=== PATIENT | male | born 1945 | race Caucasian/White ===

== ENCOUNTER 2016-10-06 13:08 | Emergency (ER) | payer MEDICARE, OTHER ==
[~2016-10-06] VITALS: Wt 77.0 kg
[2016-10-06] MEDS ORDERED: SOD CHLORIDE 0.9% 1,000 ML IV STA (13:16)
[2016-10-06 13:25] LABS: ADD SCAN DIFF NO
[2016-10-06 13:30] LABS: BASOPHIL # 0.1 10^3/ul (0.0-0.1); BASOPHILS % 0.5 % (0.0-2.0); EOSINOPHILS # 0.2 10^3/ul (0.0-0.5); EOSINOPHILS % 2.2 % (0.0-7.0); HEMATOCRIT 42.9 % (42.0-52.0); LYMPHOCYTES # 1.6 10^3/ul (0.8-2.9); LYMPHOCYTES % 17.5 % (15.0-51.0); MEAN CORPUSCULAR HEMOGLOBIN 29.1 pg (29.0-33.0); MEAN CORPUSCULAR HGB CONC 32.6 g/dl (32.0-37.0); MEAN CORPUSCULAR VOLUME 89.2 fl (82.0-101.0); MEAN PLATELET VOLUME 12.2 fl (7.4-10.4); MONOCYTE # 0.5 10^3/ul (0.3-0.9); MONOCYTES % 4.9 % (0.0-11.0); NEUTROPHILS % 74.7 % (39.0-77.0); PLATELET COUNT 199 10^3/UL (140-415); RED BLOOD COUNT 4.81 10^6/ul (4.70-6.10); RED CELL DISTRIBUTION WIDTH 12.5 % (11.5-14.5); WHITE BLOOD COUNT 9.4 10^3/ul (4.8-10.8)
--- NOTE | 2016-10-06 13:33 | RADRPT ---
PROCEDURE: Noncontrast CT Head. CLINICAL INDICATION: Code stroke. Acute neurologic deficit. TECHNIQUE: Noncontrast CT of the head was obtained. The administered radiation dose was CTDI vol = 44.46 mGy, DLP = 630.2 mGy-cm. One or more of the following dose reduction techniques were used: Aut omated exposure control, Adjustment of the mA and/or kV according to patient size, or Use of iterati ve reconstruction technique. COMPARISON: There are no similar studies submitted for comparison. FINDINGS: There is moderate generalized cerebral volume loss. There is mild cerebellar volume loss. There is minimal periventricular hypoattenuation suggesting chronic microvascular ischemic changes. There are mild vascular calcifications within the intracranial carotid arteries. There is no loss of adair-white differentiation to suggest acute territorial infarction. There is no acute intracranial hemorrhage or extra-axial fluid collection. There is no mass effect. No midline shift is identified. The orbits are within normal limits. The paranasal sinuses are well aerated. No destructive osseous lesion is identified. IMPRESSION: 1. No loss of adair-white differentiation to suggest acute territorial infarction. Consider CTA of t he head/neck or noncontrast MRI of the brain as clinically warranted. 2. No acute intracranial hemorrhage or extra-axial fluid collection. 3. Moderate cerebral volume loss with mild cerebellar volume loss. 3. Minimal chronic microvascular ischemic changes. Further findings as detailed above. These findings were discussed with Dr. Ovidio Matta at 01:32 p.m. on October 06, 2016. RPTAT: PP .Freddy Mckenzie MD, MD Date Time Electronically viewed and signed by .Freddy Mckenzie MD, on 10/06/2016 13:32 .F/
[2016-10-06 13:39] LABS: CHLORIDE 100 mmol/L (97-110); INR 1.03; PROTIME 13.5 Sec (12.2-14.2); PT RATIO 1.1; SODIUM 138 mmol/L (135-144)
[2016-10-06 13:41] LABS: CREATININE 1.19 mg/dl (0.61-1.24)
[2016-10-06 13:42] LABS: ANION GAP 17 (8-16); BLOOD UREA NITROGEN 25 mg/dl (7-20); CALCIUM 8.9 mg/dl (8.4-10.2); CARBON DIOXIDE 26 mmol/L (21-31); GLUCOSE 209 mg/dl (70-220)
[2016-10-06] MEDS ORDERED: BENA10TA48 PO (13:49)
[2016-10-06] MEDS ORDERED: LANT3I SC (13:49)
--- NOTE | 2016-10-06 13:55 | RADRPT ---
PROCEDURE: XR Chest. CLINICAL INDICATION: See possible stroke. TECHNIQUE: PA and Lateral views of the chest were obtained. COMPARISON: None. FINDINGS: The soft tissues are normal. The bony elements are normal. The heart is enlarged. cardiomediastin al silhouette and hilar structures are normal. The pulmonary vasculature is normal. There is a left- sided aorta. There are patchy infiltrates in the medial aspect of the left lower lobe. There is mil d bronchograms may project to the medial aspect of the right diaphragm. The costophrenic angles are normal. IMPRESSION: 1. Left lower lobe infiltrate. Equivocal infiltrate or atelectasis in the medial aspect of the righ t lower lobe. 2. Cardiomegaly. RPTAT:AAJJ Physician Ron Date Time Electronically viewed and signed by Physician Ron on 10/06/2016 13:55 /
[2016-10-06 13:57] LABS: TROPONIN-I < 0.012 ng/ml (0.00-0.12)
[2016-10-06] MEDS ORDERED: ASPIRIN 81 MG TAB PO ONE (14:00)
[2016-10-06] MEDS ORDERED: ACETAMINOPHEN 325 MG TAB PO PRN (15:30)
[2016-10-06] MEDS ORDERED: ONDANSETRON 4 MG INJ IV PRN ×2 (15:30→19:00)
[2016-10-06] MEDS ORDERED: NACL 0.9% 3 ML SYG IV SCH (19:00)
[2016-10-06] MEDS ORDERED: LABETALOL HCL 20MG INJ IV ONE (19:00)
[2016-10-06] MEDS ORDERED: BENAZEPRIL 10 MG TAB PO ONE (19:00)
[2016-10-06] MEDS ORDERED: morphine 2 MG INJ IV PRN (19:00)
[2016-10-06] MEDS ORDERED: hydrALAzine 20 MG INJ IV PRN (19:30)
--- NOTE | 2016-10-06 19:37 | HP ---
DATE OF ADMISSION: 10/06/2016 CHIEF COMPLAINT: Weakness and aphasia. HISTORY OF PRESENT ILLNESS: The patient is a 71-year-old male with a history of diabetes and hypert ension but noncompliant with his hypertension medications. The patient reportedly has been having w eakness on the right side of his body for the past month with repeated falls. He does not lose cons ciousness when he falls. He does not feel dizzy; he just simply feels weak. The patient started to have difficulties with speech earlier today, and it has been intermittent throughout the day. The patient has no history of strokes in the past but does have 2 heart attacks but denies any history o f stent placement or open heart surgery and denies any heart failure. The patient currently is able to speak, but history is mostly obtained by the patient's daughter who is bedside. The patient has no other complaints at this time. PAST MEDICAL HISTORY: Hypertension, insulin-requiring diabetes, [place] x2. PAST SURGICAL HISTORY: Knee surgery. HOME MEDICATIONS: 1. Benazepril 10 mg daily, which he reportedly does not take all the time. 2. Lantus 30 units subQ at bedtime. ALLERGIES: NO KNOWN DRUG ALLERGIES. FAMILY HISTORY: Denies. SOCIAL HISTORY: The patient used to smoke in the past but has not smoked for many years now. Denie s any alcohol abuse or drug abuse. REVIEW OF SYSTEMS: A 12-point review of systems negative except as stated in HPI. PHYSICAL EXAMINATION: VITAL SIGNS: Temperature is 97.3, pulse 58, respiratory rate is 18, BP 168/63, saturation 98% on ro om air. GENERAL: No acute distress. Alert. HEENT: Normocephalic, atraumatic. CHEST: Clear to auscultation. CARDIOVASCULAR: Regular rate, rhythm. ABDOMEN: Nondistended, nontender, soft. EXTREMITIES: No clubbing, cyanosis or edema. LABORATORY: White count 7.4, hemoglobin 14.0, platelets of 199. Chemistry within normal limits exc ept for anion gap of 17, BUN of 25. A1c 6.8. Troponin is negative. DIAGNOSTICS: Chest x-ray shows left lower lobe infiltrate. There is equivocal infiltrate or atelec tasis in the medial aspect of the right lower lobe. There is cardiomegaly. Brain CT shows no acute infarction, no acute hemorrhage, moderate cerebral volume loss with mild cer ebellar volume loss. EKG showed a Mobitz type 2 heart block. ASSESSMENT AND PLAN: 1. Transient ischemic attack. The patient's symptoms are concerning for multiple transient ischemi c attacks. The patient keeps having intermittent loss of language. The patient has been having wea kness on the right side for the past month, but there is no stroke noted on CT. Will get neurology consultation. Will get MRI. Will treat with aspirin and Lipitor. Will get PT and speech therapy e valuations. 2. Insulin-dependent diabetes. Continue home insulin. Diabetes is well controlled with an A1c of 6.8. Will put the patient on sliding scale as well. 3. Hypertension. Blood pressure is elevated at this time. The patient is within the window for pe rmissive hypertension as the symptoms of aphasia began today. Will hold his blood pressure medicati on at this time. Will treat BP over 200 and began to control his blood pressure over the next 24 to 48 hours. 4. Prophylaxis: Lovenox. Dictated By: CAITLIN GARCIAS MD BS/NTS Conf#: [id number] DID#: [id number]
--- NOTE | 2016-10-06 20:22 | ERA ---
ER Documentation Chief Complaint Date/Time DATE: 10/06/16 TIME: 20:11 Chief Complaint R SIDE ARM WEAKNESS AND RIGHT LEG WEAKNESS. 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 RESOLVED NOW HPI 71-year-old male presented for right arm and leg weakness to have begun an hour and a half prior to account development associate arrival according to the paramedics. This caused him to fall but he had no head injury and does not have any pain currently. 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 He denies chest pain, shortness of breath. He does seem somewhat confused during neurological testing. History may be unreliable. ROS All systems reviewed and are negative except as per history of present illness by history may be unreliable as patient is somewhat confused Medications Home Meds Reported Medications Insulin Glargine* (Lantus*) 100 Unit/Ml Soln, 30 UNIT SC QHS, #1 VIAL 10/06/16 Benazepril Hcl* (Benazepril Hcl*) 10 Mg Tablet, 10 MG PO DAILY, #30 TAB 10/06/16 Allergies Allergies: Coded Allergies: No Known Allergy (Unverified , 10/06/16) PMhx/Soc History of Surgery: Yes (LEFT LEG SX.RIGHT KNEE SX) Anesthesia Reaction: No Hx Neurological Disorder: No Hx Respiratory Disorders: No Hx Cardiac Disorders: Yes (HTN,HEART ATTACK) Hx Psychiatric Problems: No Hx Miscellaneous Medical Probl: Yes (DM) Hx Alcohol Use: No Hx Substance Use: No Hx Tobacco Use: No Smoking Status: Former smoker Physical Exam Vitals Vital Signs Date Time Temp Pulse Resp B/P Pulse Ox O2 Delivery O2 Flow Rate FiO2 10/06/16 18:30 97.3 73 18 204/89 97 Room Air 10/06/16 17:18 97.3 58 18 168/63 98 Room Air 10/06/16 15:07 77 18 177/82 98 Room Air 10/06/16 14:28 Nasal Cannula 2 10/06/16 13:13 98.1 59 18 156/74 98 Physical Exam Const: [] Mild distress, appears in comfort Head: Atraumatic Eyes: Normal Conjunctiva ENT: Normal External Ears, Nose and Mouth. Neck: Full range of motion..~ No meningismus. Resp: Clear to auscultation bilaterally Cardio: Regular rate and rhythm, no murmurs Abd: Soft, non tender, non distended. Normal bowel sounds Skin: No petechiae or rashes Back: No midline or flank tenderness Ext: No cyanosis, or edema Neur: Awake and alert Psych: Normal Mood and Affect Result Diagram: 10/06/16 1315 10/06/16 1315 Results 24 hrs Laboratory Tests Test 10/06/16 13:15 White Blood Count 9.410^3/ul Red Blood Count 4.8110^6/ul Hemoglobin 14.0g/dl Hematocrit 42.9% Mean Corpuscular Volume 89.2fl Mean Corpuscular Hemoglobin 29.1pg Mean Corpuscular Hemoglobin Concent 32.6g/dl Red Cell Distribution Width 12.5% Platelet Count 78005^3/UL Mean Platelet Volume 12.2fl Neutrophils % 74.7% Lymphocytes % 17.5% Monocytes % 4.9% Eosinophils % 2.2% Basophils % 0.5% Nucleated Red Blood Cells % 0.0/100WBC Neutrophils # 7.010^3/ul Lymphocytes # 1.610^3/ul Monocytes # 0.510^3/ul Eosinophils # 0.210^3/ul Basophils # 0.110^3/ul Nucleated Red Blood Cells # 0.010^3/ul Prothrombin Time 13.5Sec Prothrombin Time Ratio 1.1 INR International Normalized Ratio 1.03 Activated Partial Thromboplast Time 29.0Sec Sodium Level 138mmol/L Potassium Level 5.0mmol/L Chloride Level 100mmol/L Carbon Dioxide Level 26mmol/L Anion Gap 17 Blood Urea Nitrogen 25mg/dl Creatinine 1.19mg/dl Glucose Level 209mg/dl Hemoglobin A1c 6.8% Calcium Level 8.9mg/dl Troponin I < 0.012ng/ml Current Medications Medications (Trade) Dose Ordered Sig/Rodolfo Route PRN Reason Start Time Stop Time Status Last Admin Dose Admin Sodium Chloride (NS) 1,000 ml @ 1,000 mls/hr Q1H STAT IV 10/06/16 13:16 10/06/16 14:15 DC 10/06/16 14:11 Aspirin (Aspirin) 324 mg ONCE ONCE PO 10/06/16 14:00 10/06/16 14:01 DC 10/06/16 14:14 Ondansetron HCl (Zofran Inj) 4 mg ER BRIDGE PRN IV NAUSEA AND/OR VOMITING 10/06/16 15:30 10/07/16 15:29 Acetaminophen (Tylenol Tab) 650 mg ER BRIDGE PRN PO MILD PAIN/FEVER 10/06/16 15:30 10/07/16 15:29 Labetalol HCl (Labetalol) 10 mg ONCE ONCE IV 10/06/16 19:00 10/06/16 19:01 DC 10/06/16 18:57 Benazepril HCl 10 mg 10 mg ONCE ONCE PO 10/06/16 19:00 10/06/16 19:01 DC 10/06/16 19:44 Sodium Chloride (1/2 NS) 1,000 ml @ 100 mls/hr Q10H IV 10/06/16 18:52 UNV IV Flush (NS 3 ml) 3 ml PER PROTOCOL IV 10/06/16 19:00 UNV Ondansetron HCl (Zofran Inj) 4 mg Q6H PRN IV NAUSEA AND/OR VOMITING 10/06/16 19:00 UNV Morphine Sulfate (morphine) 2 mg Q4H PRN IV SEVERE PAIN LEVEL 7-10 10/06/16 19:00 UNV Enoxaparin Sodium (Lovenox) 40 mg DAILY SC 10/07/16 09:00 UNV Insulin Aspart (Novolog Insulin Pen) NOVOLOG *MILD* ALGORI... Q4 SC 10/06/16 21:00 UNV Miscellaneous Information (* Miscellaneous Pharmacy Order) HYPOGLYCEMIA PROTOCOL w... ONCE ONCE XX 10/06/16 19:00 10/06/16 19:01 UNV Miscellaneous Information (* Miscellaneous Pharmacy Order) Discontinue Glyburide, Glipizide,... ONCE ONCE XX 10/06/16 19:00 10/06/16 19:01 UNV Miscellaneous Information (* Miscellaneous Pharmacy Order) Discontinue all previ... ONCE ONCE XX 10/06/16 19:00 10/06/16 19:01 UNV Insulin Glargine (Lantus) 10 unit DAILY@20 SC 10/06/16 20:00 UNV Atorvastatin Calcium (Lipitor) 80 mg HS PO 10/06/16 21:00 UNV Aspirin (Ecotrin) 325 mg DAILY PO 10/07/16 09:00 UNV Hydralazine HCl (Apresoline) 10 mg Q4 PRN IV SBP>190 10/06/16 19:30 UNV Procedures/MDM 71-year-old male with history concerning for transient ischemic attack. Patient was noted to have confusion in 2 instances in the emergency room. He arrived he had trouble following instructions for a neurological exam. And after he had been here for a few hours his daughter noticed that he was acutely confused which she had not been before. Had resolving weakness consistent with a TIA. Patient was evaluated by tele-neurology she states the patient's family said that he is having symptoms on and off for a month does not seem to have any weakness at this time does not recommend TPA further conversation with family also reports of him having hypotension at some times in the past. He does have bradycardia with ventricular coupling and EKGs and cardiac arrhythmia may be responsible for his falls CT was negative for hemorrhage and the patient was given aspirin. Spoke with negative she will be admitting the patient and request that I call Dr Springer. Dr. Gomez was covering or Dr. Springer and was paged but has not called back to the emergency room at. Patient's blood pressure actually became very high he was given 10 mg of labetalol to acutely lower. Did order an MRI from the ER. Patient will be admitted for further workup of transient ischemic attack as well as possible cardiac abnormalities. I also ordered an echocardiogram. EKG interpretation #1 call apparent sinus bradycardia with ventricular coupling seems more likely than Mobitz type II heart block considering the patient's monitor on the rhythm often transitions to sinus bradycardia, left axis deviation, no ST or T-wave changes concerning for acute ischemia. EKG interpretation #2: Sinus bradycardia with ventricular coupling, rate of 74, left axis deviation, no ST or T-wave changes concerning for acute ischemia on intrinsic beats. Critical care time 30 minutes: This includes treatment of increasing high blood pressure with fluctuating neurological symptoms in patient with possible stroke , use of vasoactive medication labetalol IV to lower blood pressure, multiple visits the patient's bedside to reassess his neuro and cardiodynamics status, chart review, discussion with family, discussion with the admitting doctor. This is not including any billable procedures. Departure Diagnosis: Primary Impression: Transient ischemic attack Additional Impressions: Accelerated hypertension Altered level of consciousness Acute electrocardiogram changes Condition: Serious NIA RUIZ DO Oct 06, 2016 20:21
[2016-10-06] MEDS ORDERED: DEXTROSE 50% 50 ML SYRINGE IV PRN ×2 (20:30)
[2016-10-06] MEDS ORDERED: GLUCOSE GEL 15 GRAM TUBE BUCCAL PRN (20:30)
[2016-10-06] MEDS ORDERED: GLUCOSE GEL 15 GRAM TUBE PO PRN ×2 (20:30)
[2016-10-06] MEDS ORDERED: GLUCAGON 1 MG INJ IM PRN (20:30)
--- NOTE | 2016-10-06 20:48 | STROKE ---
Date/Time of Note Date/Time of Note DATE: 10/06/16 TIME: 18:22 Patient Information General Patient location: emergency Arrival Date Age 71 Gender male Weight 77 kg Vital Signs Vital Signs Vital Signs Date Time Temp Pulse Resp B/P Pulse Ox O2 Delivery O2 Flow Rate FiO2 10/06/16 17:18 97.3 58 18 168/63 98 Room Air 10/06/16 14:28 2 Patient History Current Medications Allergies: Coded Allergies: No Known Allergy (Unverified , 10/06/16) Labs Hematology Labs Hematology Test 10/06/16 13:15 White Blood Count 9.410^3/ul (4.8-10.8) Red Blood Count 4.8110^6/ul (4.70-6.10) Hemoglobin 14.0g/dl (14.0-18.0) Hematocrit 42.9% (42.0-52.0) Mean Corpuscular Volume 89.2fl (82.0-101.0) Mean Corpuscular Hemoglobin 29.1pg (29.0-33.0) Mean Corpuscular Hemoglobin Concent 32.6g/dl (32.0-37.0) Red Cell Distribution Width 12.5% (11.5-14.5) Platelet Count 49507^3/UL (140-415) Mean Platelet Volume 12.2fl (7.4-10.4) Neutrophils % 74.7% (39.0-77.0) Lymphocytes % 17.5% (15.0-51.0) Monocytes % 4.9% (0.0-11.0) Eosinophils % 2.2% (0.0-7.0) Basophils % 0.5% (0.0-2.0) Nucleated Red Blood Cells % 0.0/100WBC (0.0-0.0) Neutrophils # 7.010^3/ul (1.6-7.5) Lymphocytes # 1.610^3/ul (0.8-2.9) Monocytes # 0.510^3/ul (0.3-0.9) Eosinophils # 0.210^3/ul (0.0-0.5) Basophils # 0.110^3/ul (0.0-0.1) Nucleated Red Blood Cells # 0.010^3/ul (0.0-0.0) Chemistry Labs Chemistry Test 10/06/16 13:15 Sodium Level 138mmol/L (135-144) Potassium Level 5.0mmol/L (3.5-5.1) Chloride Level 100mmol/L (97-110) Carbon Dioxide Level 26mmol/L (21-31) Anion Gap 17 (8-16) Blood Urea Nitrogen 25mg/dl (7-20) Creatinine 1.19mg/dl (0.61-1.24) Glucose Level 209mg/dl (70-220) Hemoglobin A1c 6.8% (0-5.9) Calcium Level 8.9mg/dl (8.4-10.2) Troponin I < 0.012ng/ml (0.00-0.12) Coagulation Labs: Coagulation Test 10/06/16 13:15 Prothrombin Time 13.5Sec (12.2-14.2) Prothrombin Time Ratio 1.1 INR International Normalized Ratio 1.03 Activated Partial Thromboplast Time 29.0Sec (25.0-35.0) History & Physical Patient History Notes Pt Hx Reviewed History of Present Illness 71yo M presents with acute onset confusion and possible right sided numbness and weakness. The report of right sided numbness and weakness was given by EMS. Patient's daughter reports that patient has been intermittently collapsing over the last month. Today, daughter reports that the patient's blood pressure dropped at daycare and then the patient became confused. Review of Systems Constitutional: no symptoms reported EENTM: no symptoms reported Respiratory: no symptoms reported Cardiovascular: no symptoms reported Gastrointestinal: no symptoms reported Genitourinary: no symptoms reported Musculoskeletal: no symptoms reported Skin: no symptoms reported Psychiatric/Neurological: no symptoms reported All Other Systems: Reviewed and Negative NIH Stroke Scale NIH Stroke Scale 1A - Level of Conciousness: 0 - Alert keenly [id number] LOC Questions: 0 - Answers both [id number] - LOC Commands: 0 - Performs both tasks2 - Best Gaze: 0 - Normal3 - Visual: 0 - No visual loss4 - Facial Palsy: 0 - No visual loss 5A - Motor Arm - Left: 0 - No [id number] - Motor Arm - Right: 0 - No [id number] - Motor Leg - Left: 0 - No [id number] - Motor Leg - Right: 0 - No drift7 - Limb Ataxia: 0 - Absent8 - Sensory: 0 - Normal9 - Best Language: 0 - No aphasia or normalDysarthria: 0 - [id number] - Extinction and inattentio: 0 - No abnormality Date/Time Recorded DATE: 10/06/16 TIME: 18:22 Submitted By Jett Newton t-PA Imaging Review Imaging Reviewed: Yes Date/Time Imaging Reviewed DATE: 10/06/16 TIME: 18:22 Imaging Findings No acute changes t-PA Administration Recommendation: No Weight 77 kg Recommedation submitted by Jett Newton Reason t-PA not Recommended symptoms resolving quickly t-PA Not Recommended Date/Time 14:00 Recommendations Impression Diagnosis altered mental status, syncope Recommendation 71yo M presents with acute onset confusion and possible right sided numbness and weakness. Neurological exam is now unremarkable. Differential diagnosis for patient's altered mental status includes ischemic stroke, metabolic encephalopathy, and seizure but, given patient's reported hypotension, I suspect patient's symptoms may be cardiac in etiology. I recommend workup to include MRI Brain without gadolinium, MRA of the head without gadolinium, MRA of the neck with gadolinium, transthoracic echocardiogram, EEG, infectious/ metabolic workup, and manager monitoring. Diagnostic Labs: Lipid Proile Hgb A1C CMP CBC w/Diff Coags Urinaysis Therapy: Physical Therapy Speech Therapy Occupational Therapy Misc. Recommendations: Bedside Swallow Evaluation Pnumatic Compression Devices Stroke Education Smoking Education JETT NEWTON Oct 06, 2016 18:32
[2016-10-06 21:15] LABS: T3 UPTAKE 34.7 % (23.5-40.5)
[2016-10-06] MEDS ORDERED: SOD CHLORIDE 0.45% 1,000 ML IV SCH (22:00)
--- NOTE | 2016-10-06 22:09 | RADRPT ---
PROCEDURE: MRI Brain without contrast. CLINICAL INDICATION: Neurologic deficit. Possible stroke. TECHNIQUE: MRI of the brain was performed with the following sequences obtained: Sagittal, coronal and axial T1-weighted, axial T2-weighted, axial FLAIR, axial diffusion weighted (with ADC map), and coronal GRE. COMPARISON: CT brain 10/06/2016 FINDINGS: Approximately 9 punctate foci of restricted diffusion each measuring less than 5 mm is present withi n the posterior left cerebral hemisphere near the convexity involving the posterior left frontal, le ft parietal and junction between the left occipital and parietal lobes, findings consistent with acu te ischemic lacunar type infarcts in the watershed distribution between the anterior middle cerebral arteries No hemorrhage, mass effect or mass lesion is present. The extraaxial spaces are clear of collections. Prominence of the ventricular system and sulci is consistent with generalized tissue loss, the degree of atrophy appropriate for the patient's provided age of 71 years. Multiple foci o f hyperintense FLAIR and T2 signal within the subcortical and periventricular white matter are nonsp ecific but likely reflect chronic small vessel ischemic sequela. No signal alteration is present within the brainstem or cerebellum. The fourth ventricle is midline and the craniocervical junction lesion is intact. The area of the sella is normal. The bony calvarium and skull base are intact. Mild fluid signal within the mastoid air cells is pre sent. The paranasal sinuses are grossly clear. The for void in the left internal carotid artery at the skull base and cavernous segment is consistent with left internal carotid artery occlusion (ser ies 6 images 8-9). The vertebral artery flow voids are preserved. RPTAT:HJJR IMPRESSION: 1. Lack of normal signal void in the left internal carotid artery at the skull base to the level of the carotid terminus is consistent with left internal carotid artery occlusion. 2. Approximately 9 punctate sub-5 mm watershed distribution acute lacunar ischemic infarcts in the l eft posterior frontal and left parietal lobes without hemorrhage or mass effect. 3. Generalized age-appropriate cerebral tissue loss and moderate chronic small vessel ischemic whit e matter disease without intracranial mass effect. 4. Results are discussed by telephone with emergency room physician Dr. Geiger at 2207 hours Maurice Poncho, Physician Date Time Electronically viewed and signed by Maurice Isaac, Physician on 10/06/2016 22:08 JR/
[2016-10-06] MEDS ORDERED: INSULIN GLARGINE [LANtus] 3 ML PEN SC SCH (23:00)
--- NOTE | 2016-10-06 23:33 | RADRPT ---
Echocardiogram Report Patient Name: CATHRYN BLACKBURN Gender: Male Date: 1945 Study Date: 06-Oct-2016 Dev Ops Engineer: Heidi Cavazos [facility] [[email or web address]] Location: ER13 Ref. Physician: NIA RUIZ Quality: Adequate Procedures: Transthoracic echocardiogram with complete 2D, M-Mode, and doppler examination. Indications: Abnormal EKG. Syncope. 2D/M Mode Doppler Measurement Value Normal Ranges Measurement Value Normal Ranges LVIDd 2D 4.0 3.5 - 5.6 cm AV Peak Hiram 1.6 m/sec LVIDs 2D 2.9 2.1 - 4.1 cm AV Peak PG 10.3 mmHg LVPWd 2D 1.2 0.6 - 1.1 cm LVOT Peak Hiram 0.9 m/sec IVSd 2D 1.1 0.6 - 1.1 cm LVOT Peak PG 3.2 mmHg AoR Diam 2D 3.3 2.0 - 3.7 cm MV E Peak Hiram 0.9 m/sec EDV 2D 68.7 cm3 MV A Peak Hiram 0.8 m/sec ESV 2D 24.2 cm3 MV E/A 1.1 LA Dimen 2D 4.2 2.3 - 4.0 cm MV Decel Time 100 msec MV Decel Teller 9 MV E/A 1.1 TR Peak Hiram 3.4 m/sec TR Peak PG 46.0 mmHg RVSP 49.0 mmHg Findings Left Ventricle: Normal left ventricular cavity size. Mild concentric left ventricular hypertrophy. Mild left ventricular systolic dysfunction. Ejection fraction is visually estimated at 50 %. Tissue Doppler/Mitral Doppler indices are indeterminate in this study due to the presence of arrhythmia. These segments of the LV are hypokinetic apical septum. Right Ventricle: Normal right ventricular size. Normal right ventricular systolic function. Left Atrium: There is mild enlargement of left atrium. Right Atrium: The right atrium is normal in size. Mitral Valve: Mitral valve leaflets appear mildly thickened. Mild mitral annular calcification. Mild to moderate mitral valve regurgitation. The regurgitation jet is eccentrically directed which may underestimate the severity of mitral regurgitation. Aortic Valve: No significant aortic stenosis or insufficiency. Aortic cusps appear mildly calcified. Tricuspid Valve: Normal appearance of the tricuspid valve. Estimated peak PA systolic pressure 49 mmHg. There is mild tricuspid regurgitation. Pulmonic Valve: Normal pulmonic valve appearance. Pericardium: Normal pericardium with no significant pericardial effusion. Aorta: Normal aortic root. IVC: Normal size and normal respiratory collapse consistent with normal right atrial pressure. Conclusions 1.Normal left ventricular cavity size. Mild concentric left ventricular hypertrophy. Mild left ventricular systolic dysfunction. Ejection fraction is visually estimated at 50 %. Tissue Doppler/Mitral Doppler indices are indeterminate in this study due to the presence of arrhythmia. These segments of the LV are hypokinetic apical septum. 2.There is mild enlargement of left atrium. 3.Mild to moderate mitral valve regurgitation. 4.Normal appearance of the tricuspid valve. Estimated peak PA systolic pressure 49 mmHg. 5.There is mild tricuspid regurgitation. Electronically Signed By: Lisandro Springer 06-Oct-2016 23:32:51 -0700 Patient Name: CATHRYN BLACKBURN Study Date: 06-Oct-2016 [id number]
--- NOTE | 2016-10-07 00:13 | EN ---
Date/Time of Note Date/Time of Note DATE: 10/07/16 TIME: 00:05 ER Progress Note I assumed the patient's care at [address] West, who discussed the patient with the stroke neurologist and [facility] to transfer the patient. According to Dr West, he was neurologically intact. At 11:45 pm, I discussed the patient with Dr Pereyra from [facility] in [place], who was made aware of the brain MRI findings and the stroke neurologist 's recommendation. He is going to check for bed availability and gets back to us At 11:55 pm, after I examined the patient, I discussed the patient with Dr Pereyra, who was made aware that the patient now is confused and unable to follow commands. According to the nurse, he was talking with the daughter about an hour ago. The daughter stated that his mental status has been flunctuating. I reviewed the stroke neurologist's note who recommended Aspirin 81 mg and Plavix 75 mg po. However, he failed the swallowing test, he was then treated with Aspirin [address] Pereyra was made aware of the patient's condition and accepted the patient at 11: 55 pm via ambulance. SOO MINOR MD Oct 07, 2016 00:13
[2016-10-07] MEDS ORDERED: ASPIRIN 600 MG SUPP PR ONE (00:30)
[2016-10-07 00:35] VITALS: BP 172/92; PULSE 77; RESP 18; TEMP 97.3
[2016-10-07] MEDS ORDERED: INSULIN ASPART [NOVOLOG] 3 ML PEN SC SCH (01:00)
[2016-10-07] MEDS ORDERED: METOPROLOL 25 MG TAB PO SCH (09:00)
[2016-10-07] MEDS ORDERED: ASPIRIN (EC) 325 MG TAB PO SCH (09:00)
[2016-10-07] MEDS ORDERED: ENOXAPARIN 40 MG/0.4 ML SYG SC SCH (09:00)
--- NOTE | 2016-10-07 09:01 | CONS ---
DATE OF ADMISSION: 10/06/2016 DATE OF CONSULTATION: 10/06/2016 REASON FOR CONSULTATION: Positive troponin consistent with [id number] myocardial infarction. REQUESTING PHYSICIAN: Dr. Loco from the hospitalist service. HISTORY OF PRESENT ILLNESS: Mr. Anders is a 71-year-old male with a history of Parkinson's diseas e who initially presented with recurrent falls and associated shortness of breath. Per family, the patient continues to fall, but does not lose consciousness, and [facility]t that the right side of his body gave out and caused him to fall. Upon arrival, temperature 98.1 , blood pressure 156/74, pulse 59, respirations 18, saturating 98%. The patient's labs revealed a w chris cell count 9.4, hemoglobin 14, a platelet count of 199. Sodium of 138, potassium 5.0, creatini ne 1.1, BUN 25. Troponin negative. T4 3.0, INR of 1.0. The patient underwent a chest x-ray reveal ing left lower lobe infiltrate and cardiomegaly. The patient had a head CT revealing no loss of gra y-white matter differentiation, no acute intracranial hemorrhage, moderate cerebral volume loss and brain a MRI that subsequently revealed lack of normal signal voided in the left intracardiac skull b ase, level with the carotid terminates, consistent with left internal carotid occlusion, approximate ly ____ acute ischemic infarct to the left posterior frontal and left parietal lobes, generalized ag e-appropriate cerebral tissue loss. The patient's electrocardiogram revealed sinus rhythm at a rate of 74 with frequent PVCs in a pattern of bigeminy, normal axis, borderline anterior R-wave progress ion, nonspecific ST-T abnormalities. The patient at this time has been treated with Lovenox, statin therapy and given findings of occlusion, he has been counseled by the neurology and neurosurgical s ervices. PAST MEDICAL HISTORY: As above in HPI. MEDICATIONS: Currently in hospital: 1. Lipitor 80 mg at bedtime. 2. Lovenox 40 mg subQ daily. 3. Lantus 10 units subQ daily. 4. Hydralazine p.r.n. 5. Zofran p.r.n. 6. Morphine p.r.n. 7. Tylenol p.r.n. ALLERGIES: NO KNOWN DRUG ALLERGIES. SOCIAL HISTORY: No tobacco, ETOH or illicit drug use. FAMILY HISTORY: No history of sudden cardiac or early CAD. REVIEW OF SYSTEMS: As above in HPI. CONSTITUTIONAL: No fevers, chills. PULMONARY: No current signs of respiratory compromise. GASTROINTESTINAL: No vomiting. GENITOURINARY: No hematuria. MUSCULOSKELETAL: Degenerative joint disease. PSYCHIATRIC: The patient denies depression. NEUROLOGIC: No documented history of CVA. PHYSICAL EXAMINATION: VITAL SIGNS: Temperature most recently 97.3, last documented blood pressure 168/60, pulse 50, respi ratory rate 18, saturating 98%. GENERAL: The patient is alert, awake, in no acute distress. NECK: JVP approximately 8 cm water. CHEST: Fair air movement throughout. HEART: Regular rate and rhythm. Normal S1, S2, I/ systolic murmur, nondisplaced PMI. ABDOMEN: Positive bowel sounds, soft. EXTREMITIES: No edema, 1+ pulses bilaterally, posterior tibial. LABORATORIES: As above in HPI. No further labs for my review at this time. IMAGING STUDIES: As above in HPI. No further imaging studies for my review at this time. ECG: As above in HPI. No further electrocardiograms for my review at this time. IMPRESSION: 1. Abnormal electrocardiogram, assess for acute coronary syndrome. 2. Cardiac arrhythmia with PVCs in a pattern of trigeminy. 3. Hypertension, uncontrolled, consistent with hypertensive urgency/emergency. 4. Cerebrovascular accident, acute. 5. Carotid artery stenosis, possible thrombosis. 6. Dyslipidemia. 7. Recurrent falls, likely due to cerebrovascular accident. RECOMMENDATIONS: 1. At this time, would admit the patient to telemetry monitoring to follow rhythm and rate control closely. 2. Would initiate the patient on beta obdulia to suppress recurrent bouts of PVCs as tolerated, fol lowing heart rate closely. Additionally, would consider an CHRISTIAN inhibitor to improve overall systoli c blood pressure control. 3. Will hold on second medication, as the patient had acute CVA, and therefore, supine permissive h ypertension may be warranted in this case. 4. Given the patient's occlusion, ____ to neurology services as to whether to initiate the patient on full systemic anticoagulation at this time, or if there might be ____. Also continue subcutaneou s Lovenox at this time. 5. Continue the patient's statin therapy and aspirin therapy. 6. Complete a rule out for myocardial infarction to ensure that the patient's trigeminy, bigeminy i s not due to acute coronary syndrome, acute myocardial infarction, and check a 2-D echo to assess th is patient's ejection fraction and panel for general risk stratification. Thank you for allowing me to take part in the care of this patient. I will continue to follow very closely with you with further recommendations to be made as the patient progresses through his [facility] course. Dictated By: ERYN ARREOLA/PENNIE Conf#: [id number] DID#: [id number] CC: CAITLIN GARCIAS MD;*EndCC*
--- NOTE | 2016-10-07 16:43 | DS ---
DATE OF ADMISSION: 10/06/2016 DATE OF DISCHARGE: 10/07/2016 DISCHARGE DIAGNOSES: 1. Cerebrovascular accident secondary to left internal carotid artery occlusion ____watershed distr ibution. The patient was transferred to comprehensive stroke center. 2. Non-ST elevation myocardial infarction seen by cardiology. Patient had abnormal EKG, PVCs. The patient transferred to outside facility. 3. Insulin-requiring diabetes. 4. Hypertension. HOSPITAL COURSE: The patient is a 71-year-old male with history of insulin requiring diabetes, hype rtension, as well as 1 month of intermittent weakness of the right side of the body. The patient pr esented with intermittent aphasia throughout the day of admission. The patient had a brain CT that showed no significant findings. Brain MRI showed a lack of signal in the left internal carotid thierry ry which was consistent with left internal carotid artery occlusion. There was approximately ____ s ub 5 mm watershed distribution acute lacunar ischemic infarcts in the left posterior frontal and lef t parietal lobes without hemorrhagic mass effect. The patient was seen by neurology. ____the patien t needs to be transferred to a comprehensive stroke center for further evaluation and treatment. Of note, the patient also had abnormal EKG and was seen by Dr. Springer of Cardiology. The patient had PVCs in a pattern of trigeminy. The [facility] ____ October 06 leading into the morning of October 07. CONDITION ON DISCHARGE: Fair. DISPOSITION: Was transferred to [facility] for further care. MEDICATIONS: Per the physician at [facility]. FOLLOWUP: Should follow up with physicians at [facility]. ____ minutes was spent coordinating discharge of patient. Dictated By: CAITLIN GARCIAS MD BS/NTS Conf#: [id number] DID#: [id number]
[2016-10-07] MEDS ORDERED: ATORVASTATIN 80 MG TAB PO SCH (21:00)
== END 2016-10-07 00:48 | disposition short-term general hospital (02) ==
LOC: E/R 13:08
DX: G45.9 Transient cerebral ischemic attack, unspecified (principal); E11.9 Type 2 diabetes mellitus without complications; I10 Essential (primary) hypertension; R94.31 Abnormal electrocardiogram [ECG] [EKG]; Z87.891 Personal history of nicotine dependence
CPT/HCPCS: 36415; 70450; 70551; 71010; 80048; 82962; 83036; 84436; 84479; 84484; 85025; 85610; 85730; 93005; 93306; 96372; 96374; 99291; J1815; J7030